=== PATIENT | female | born 1985 | race African-American/Black ===

== ENCOUNTER 2017-01-23 15:47 | Emergency (ER) | payer SELFPAY ==
[~2017-01-23] VITALS: Ht 162.6 cm; Wt 83.9 kg
[2017-01-23 16:19] VITALS: BP 116/76
[2017-01-23] MEDS ORDERED: ROBAXIN-750750 MG PO (16:29)
[2017-01-23] MEDS ORDERED: IBUPROFEN600 MG ORAL (16:29)
[2017-01-23 16:52] VITALS: BP 116/76
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
== END 2017-01-23 16:50 | disposition home or self-care (01) ==
LOC: EMR 16:26
DX: M54.5 Low back pain (principal); M54.2 Cervicalgia; T14.8 Other injury of unspecified body region; V43.52XA Car driver injured in collision with other type car in traffic accident, initial encounter; Y92.410 Unspecified street and highway as the place of occurrence of the external cause
CPT/HCPCS: 99284

== ENCOUNTER 2018-06-18 12:04 | Emergency (ER) | payer BC, OTHER ==
[~2018-06-18] VITALS: Ht 162.6 cm; Wt 78.5 kg
[~2018-06-18 12:04] MED LIST: IBUPROFEN600 MG ORAL; ROBAXIN-750750 MG PO
[2018-06-18] MEDS ORDERED: NKM (12:27)
[2018-06-18] MEDS ORDERED: Methocarbamol 750mg tab ORAL ONE (14:00)
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
[2018-06-18] MEDS ORDERED: ROBAXIN-750750 MG PO (14:10)
[2018-06-18] MEDS ORDERED: IBUPROFEN600 MG ORAL (14:10)
[2018-06-18] MEDS ORDERED: HYDROCORTISONE30 G2 TP (14:10)
[2018-06-18 14:22] VITALS: BP 125/79
[2018-06-18 14:23] VITALS: BP 125/79
--- NOTE | 2018-06-18 15:33 | Diagnostic Imaging Report ---
Indication: Left shoulder/clavicle injury Comparison: None Findings: 2 views of the left clavicle obtained. No acute fracture identified. IMPRESSION: No acute fracture identified
== END 2018-06-18 14:23 | disposition home or self-care (01) ==
LOC: EMR 14:10
DX: S16.1XXA Strain of muscle, fascia and tendon at neck level, initial encounter (principal); S80.12XA Contusion of left lower leg, initial encounter; S20.212A Contusion of left front wall of thorax, initial encounter; V43.52XA Car driver injured in collision with other type car in traffic accident, initial encounter; Y92.410 Unspecified street and highway as the place of occurrence of the external cause; S30.861A Insect bite (nonvenomous) of abdominal wall, initial encounter; W57.XXXA Bitten or stung by nonvenomous insect and other nonvenomous arthropods, initial encounter
CPT/HCPCS: 99283